=== PATIENT | male | born 1950 | race Caucasian/White ===

== ENCOUNTER → 2017-02-23 | Outpatient (CLI) | payer MEDICARE | END | disposition home or self-care (01) | LOC: GMAM 10:14 | PROVIDERS: ATTEND Family Medicine | DX: Z12.5 Encounter for screening for malignant neoplasm of prostate (principal) ==

== ENCOUNTER → 2018-03-22 | Outpatient (CLI) | payer MEDICARE | LOC: GMAM 12:07 | PROVIDERS: ATTEND Family Medicine | DX: Z12.5 Encounter for screening for malignant neoplasm of prostate (principal) ==

== ENCOUNTER 2019-06-07 10:57 | Inpatient (IN) | payer MEDICARE ==
--- NOTE | 2019-06-07 10:58 | HP ---
SUPERVISING PHYSICIAN: Wu Gray MD CHIEF COMPLAINT: Heart palpitations, shortness of breath. HISTORY OF PRESENT ILLNESS: Mr. Rodriguez is a 68-year-old, male patient that presented to Dr. Gray's office today for evaluation of shortness of breath and heart palpitations which he has been experiencing since this past weekend. In the clinic, it was noted that his heart rate was in the 130s and EKG revealed he was in atrial flutter. He does have a history of recently being treated for questionable pneumonia on both azithromycin 2 weeks previously and then a week's worth of Levaquin within the last week and just finished up 2 days ago on treatment course. He was denying any actual chest pains, but noted he had been having some palpitations and just overall not feeling well since Thursday. Given his EKG showing atrial flutter which is new onset with no history of atrial fibrillation, Dr. Gray requested the patient be direct admission for initiation and evaluation for further treatment of questionable chronic obstructive pulmonary disease exacerbation having failed outpatient treatment plan and new onset of atrial fibrillation/flutter. The patient was admitted in stable condition. PAST MEDICAL HISTORY: 1. Hypertension. 2. Diabetes mellitus, type 2. 3. Chronic obstructive pulmonary disease. 4. Chronic nicotine addiction. PAST SURGICAL HISTORY: 1. Colon resection in January of this past year for polypectomy. 2. Tonsillectomy. HOME MEDICATIONS: 1. Lisinopril 20 mg b.i.d. 2. Vitamin B12 1000 mcg sublingual daily. 3. Atorvastatin 40 mg daily. 4. Metformin 1000 mg b.i.d. 5. Gabapentin 300 mg b.i.d. 6. Aspirin 81 mg at bedtime. 7. Amlodipine 10 mg daily. ALLERGIES: NO KNOWN DRUG ALLERGIES. FAMILY HISTORY: Mother is still alive at age 91 with advanced dementia and lives in a care facility. His dad is at age 63 due to heart attack and strokes. He has no siblings. SOCIAL HISTORY: The patient is a retired construction carpenter. He currently lives in [place], [place]. He is . He notes that he does drink approximately 5 to 6 beers on a daily basis and smokes about a half a pack of cigarettes daily and has smoked anywhere from 1 pack to 1-1/2 packs a day for over 50 years. He denies any illicit drug use. REVIEW OF SYSTEMS: CONSTITUTIONAL: Positive for general malaise. Denies any fever or chills. HEENT: Negative for headache, sore throats, earaches, nasal congestion, vision changes. RESPIRATORY: Positive for cough, shortness of breath as noted in history of present illness. Recent treatment with Levaquin and Z-Damon for pneumonia. CARDIOVASCULAR: Negative for chest pain or syncopal episodes. Positive for palpitations as noted in history of present illness. GASTROINTESTINAL: Negative for nausea, vomiting, diarrhea or abdominal pain. GENITOURINARY: Negative for dysuria, hematuria, polyuria. MUSCULOSKELETAL: Denies any arthralgias, joint swelling. SKIN: Negative for lesions, rashes, moles or unexplained changes. NEUROLOGIC: Negative for syncopal episode, vision changes, headaches, ataxia, seizures or other neurological deficits. HEMATOLOGIC: Denies easy bruising or unexplained bleeding. PHYSICAL EXAMINATION: VITAL SIGNS: On admission, heart rate between 115 and 140, blood pressure 139/96, temperature 98.7, pulse 18, saturation 96% on room air at rest. Admission weight was 77.5 kg. GENERAL: The patient appeared to be in no acute distress, well-hydrated, well- nourished, alert. HEENT: Tympanic membranes clear bilaterally. Oropharynx is pink, moist without any lesions. NECK: Supple, nontender with full range of motion. No jugular venous distention noted. RESPIRATORY: Lung sounds fairly clear throughout, just very faint rhonchi noted on the right, more prominent on the posterolateral aspect, but diminished towards the bases bilaterally. No wheezing or rales noted. CARDIOVASCULAR: Regular rate and rhythm with III/ systolic murmur. No gallops or rubs noted. ABDOMEN: Soft, nontender. Positive bowel sounds. EXTREMITIES: There is no edema. NEUROLOGIC: The patient is alert and oriented times three. Cranial nerves II- XII are grossly intact. SKIN: Warm, pink and dry. LABORATORY: White count 10,600 with a left shift showing 2% bands. Hemoglobin 14.1, hematocrit 40.9, platelet count 478,000. Chemistry showed sodium 134, potassium 3.5, anion gap normal at 16 with carbon dioxide 25, BUN 13, creatinine 0.84. Blood sugar 200. Calcium 8.8, magnesium low at 1.6. Liver functions all within normal limits. Troponin 0.02. BNP elevated at 493. TSH pending. RADIOLOGY: Two-view chest per radiologic interpretation showed mild opacification of the right midlung which may represent areas of subsegmental atelectasis although pneumonia and aspiration are not excluded. Small bilateral pleural effusion, but no pneumothorax. There was note of borderline enlarged heart and partial calcified aorta. ASSESSMENT: 1. New onset of atrial flutter with EKG showing 3:1 to 4:1 conduction with RVR at 130-140bpm. 2. Acute exacerbation of congestive heart failure with a moderately reduced ejection fraction and a Grade I diastolic dysfunction with current echocardiogram showing ejection fraction of approximately 50% with aortic stenosis. 3. Exacerbation of chronic obstructive pulmonary disease having failed outpatient treatment plan with concerns for etiology being a gram negative probably Pseudomonas having been on Levaquin and azithromycin in the last 2 weeks. 4. Hypertension, poorly controlled. 5. Type 2 diabetes mellitus, on oral therapy. 6. Mild electrolyte imbalance to include hyponatremia, hypokalemia and hypomagnesemia, possibly exacerbating #1 with hyponatremia likely due to underlying pneumonia. PLAN: Mr. Rodriguez is going to be admitted for initiation of treatment for new onset of atrial flutter for rate control and anticoagulation. We will start him on a beta bo with metoprolol and hopefully be able to get better control. I will start him on Eliquis after talking with Dr. Gray. Given that he has been on Levaquin and azithromycin for underlying pneumonia, we will go ahead and start him on cefepime for concerns for Pseudomonas as well as doxycycline for atypical coverage given his underlying cardiac issues. We will go ahead and correct his electrolytes with both oral potassium and IV magnesium and follow those closely. He will be on cardiac telemetry. He already is on an MAGDALENA inhibitor and current echocardiogram results were pending. He is going to be started on a beta bo. We will hold off on Lasix at this point and reevaluate in the morning depending on how he clinically presents. He may need to go home on some Lasix and potassium, but we will await further assessment. We will go ahead and start him on Eliquis for anticoagulation. He will be on Protonix for gastric protection. I anticipate length of stay to be 2 to 3 days. Until the patient can transition to outpatient management, we will continue to monitor and treat as needed. #[id number] [facility]
[2019-06-07] MEDS ORDERED: SODIUM CHLORIDE 0.9% 1000ML 1,000 ML IVS PRN (11:05)
[2019-06-07] MEDS ORDERED: SODIUM CHLORIDE 0.9% (FLUSH) 10 ML SYG IV PRN (11:05)
[2019-06-07] MEDS ORDERED: ALUM & MAG HYDROX-SIMETHICONE 30 ML UD PO PRN (11:05)
[2019-06-07] MEDS ORDERED: GLUCAGON INJ 1 MG VIAL SUBCU PRN (11:05)
[2019-06-07] MEDS ORDERED: DEXTROSE 50% 25 GM/50 ML SYG IV PRN (11:05)
[2019-06-07] MEDS ORDERED: ONDANSETRON INJ 4 MG/2 ML VIAL IV PRN (11:05)
[2019-06-07] MEDS ORDERED: ACETAMINOPHEN 325 MG TAB PO PRN (11:05)
[2019-06-07] MEDS ORDERED: MAGNESIUM HYDROXIDE 30 ML UD PO PRN (11:05)
[2019-06-07] MEDS ORDERED: IV SET AND CAP CHANGE INJ INJ SCH (11:30)
[2019-06-07] MEDS ORDERED: MAGNESIUM SULFATE PREMIX 2GM 2 GM in PREMIX BAG 1 BAG IVPB ONE (12:19)
[2019-06-07] MEDS ORDERED: KCL 20 MEQ/NS 1,000 ML IVS PRN (12:24)
[2019-06-07] MEDS ORDERED: POTASSIUM CHLORIDE 20 MEQ TAB PO ONE (12:25)
[2019-06-07] MEDS ORDERED: MAGNESIUM SULFATE PREMIX 2GM 50 ML IVPB ONE (13:16)
[2019-06-07] MEDS: INSULIN LISPRO 100 UNITS/ML PEN SUBCU SCH ×3 (13:21→20:52)
[2019-06-07] MEDS ORDERED: METOPROLOL TARTRATE INJ 5 MG/5 ML VIAL IV ONE ×2 (13:39→17:21)
--- NOTE | 2019-06-07 14:02 | RAD ---
EXAM DESCRIPTION: Chest,2 Views CLINICAL HISTORY: 68 years Male, New onset Afib COMPARISON: None. TECHNIQUE: 2 view radiograph of the chest. IMPRESSION: Borderline enlarged heart. cardiac silhouette. Partially calcified aorta. Mild opacification in the right midlung which may represent areas of subsegmental atelectasis although pneumonia or aspiration are not excluded. Small bilateral pleural effusions. No pneumothorax. Thoracic spondylosis. Electronically signed by: Rodolfo Ny MD 06/07/2019 2:00 PM [facility]
[2019-06-07] MEDS ORDERED: SODIUM CHLORIDE 0.9% 250ML 250 ML ONE ×2 (15:24→20:18)
[2019-06-07] MEDS ORDERED: DOXYCYCLINE HYCLATE IV 100 MG VIAL IVPB ONE ×2 (15:24→20:19)
[2019-06-07] MEDS ORDERED: SODIUM CHL 0.9% 50ML MIN-BAG+ 50 ML IVPB ONE ×2 (15:24→20:18)
[2019-06-07] MEDS ORDERED: CEFEPIME 2 GM VIAL ONE ×2 (15:24→20:19)
[2019-06-07] MEDS: DOXYCYCLINE HYCLATE IV 100 MG in SODIUM CHLORIDE 0.9% 250ML 250 ML IVPB SCH (15:37)
[2019-06-07] MEDS: CEFEPIME 2 GM in SODIUM CHL 0.9% 50ML MIN-BAG+ 50 ML IVPB SCH (18:16)
[2019-06-07] MEDS ORDERED: ATORVASTATIN 20 MG TAB PO ONE (20:17)
[2019-06-07] MEDS ORDERED: LISINOPRIL 10 MG TAB ONE (20:17)
[2019-06-07] MEDS ORDERED: ASPIRIN (CHEWABLE) 81 MG TAB ONE (20:17)
[2019-06-07] MEDS ORDERED: metFORMIN HCL 500 MG TAB ONE (20:19)
[2019-06-07] MEDS: NON-FORMULARY MEDICATION 1 EA MIS (Lisinopril [Lisinopril] 20 MG) PO SCH (20:41)
[2019-06-07] MEDS: ASPIRIN (ENTERIC COATED) 81 MG TAB PO SCH (20:43)
[2019-06-07] MEDS: APIXABAN 5 MG TAB PO SCH (20:43)
[2019-06-07] MEDS: METOPROLOL TARTRATE 25 MG TAB PO SCH (20:44)
[2019-06-07] MEDS: GABAPENTIN 300 MG CAP PO SCH (20:44)
[2019-06-07] MEDS: NON-FORMULARY MEDICATION 1 EA MIS (Metformin Hcl [Glucophage] 1,000 MG) PO SCH (20:44)
[2019-06-07] MEDS ORDERED: NON-FORMULARY MEDICATION 1 EA MIS (Atorvastatin Calcium [Atorvastatin Calcium] 40 MG) PO SCH (21:00)
[2019-06-08] MEDS: DOXYCYCLINE HYCLATE IV 100 MG in SODIUM CHLORIDE 0.9% 250ML 250 ML IVPB SCH ×2 (01:52→13:33)
[2019-06-08] MEDS: CEFEPIME 2 GM in SODIUM CHL 0.9% 50ML MIN-BAG+ 50 ML IVPB SCH ×2 (03:58→15:55)
[2019-06-08] MEDS ORDERED: LISINOPRIL 10 MG TAB ONE (07:14)
[2019-06-08] MEDS ORDERED: metFORMIN HCL 500 MG TAB ONE (07:14)
[2019-06-08] MEDS ORDERED: SODIUM CHLORIDE 0.9% 250ML 250 ML ONE ×2 (07:14→18:58)
[2019-06-08] MEDS ORDERED: DOXYCYCLINE HYCLATE IV 100 MG VIAL IVPB ONE ×2 (07:15→18:59)
[2019-06-08] MEDS ORDERED: amLODIPine BESYLATE 5 MG TAB ONE (07:15)
[2019-06-08] MEDS: APIXABAN 5 MG TAB PO SCH ×2 (08:09→20:52)
[2019-06-08] MEDS: NON-FORMULARY MEDICATION 1 EA MIS (Metformin Hcl [Glucophage] 1,000 MG) PO SCH (08:09)
[2019-06-08] MEDS: METOPROLOL TARTRATE 25 MG TAB PO SCH ×2 (08:09→17:10)
[2019-06-08] MEDS: NON-FORMULARY MEDICATION 1 EA MIS (Lisinopril [Lisinopril] 20 MG) PO SCH (08:09)
[2019-06-08] MEDS: INSULIN LISPRO 100 UNITS/ML PEN SUBCU SCH ×4 (08:13→21:06)
[2019-06-08] MEDS: metFORMIN HCL 500 MG TAB PO SCH ×2 (08:42→20:53)
[2019-06-08] MEDS: LISINOPRIL 10 MG TAB PO SCH ×2 (08:42→20:53)
[2019-06-08] MEDS: amLODIPine BESYLATE 5 MG TAB PO SCH (08:42)
[2019-06-08] MEDS ORDERED: NON-FORMULARY MEDICATION 1 EA MIS (Amlodipine Besylate [Amlodipine Besylate] 10 MG) PO SCH (09:00)
[2019-06-08] MEDS ORDERED: POTASSIUM CHLORIDE 10 MEQ TAB PO SCH (11:26)
[2019-06-08] MEDS ORDERED: SODIUM CHLORIDE 0.9% (FLUSH) 10 ML SYG IV PRN (11:48)
[2019-06-08] MEDS ORDERED: POTASSIUM CHLORIDE 10 MEQ TAB PO ONE (11:55)
[2019-06-08] MEDS: FUROSEMIDE 40 MG TAB PO SCH (11:56)
--- NOTE | 2019-06-08 14:25 | PN ---
SUPERVISING PHYSICIAN: Wu Gray MD DATE: 06/08/19 SUBJECTIVE: The patient required a couple of doses of IV Lopressor yesterday for continued rapid ventricular response. He has had a little bit of episodes of shortness of breath, but never was in distress. He denied any chest pains. He does note that he does have some issues with laying flat in recent weeks. He has been afebrile. He has had no nausea or vomiting. OBJECTIVE: VITAL SIGNS: Temperature 97. Pulse 89. Blood pressure 150/94. Respirations 16. Saturation 94% on room air at rest. I&Os show a positive balance. Weight 77.5 kg. GENERAL: The patient is resting comfortably. He is alert. CHEST: Lung sounds are diminished towards to the bases bilaterally with just a very faint rhonchi heard on the posterolateral aspect in the right lung. HEART: Irregular rate today showing to be 80 on the monitor. ABDOMEN: Soft, nontender. Positive bowel sounds. EXTREMITIES: No edema today. NEUROLOGIC: Alert and oriented times three. LABORATORY: White count 6,600, hemoglobin 13.2, hematocrit 39.2, platelet count 404,000. Differential shows a resolved left shift with no bands present today. Chemistries show normal electrolytes with BUN 11, creatinine 0.84. Blood sugars have ranged from 154 to 216. Magnesium 1.8. RADIOLOGY: No additional radiographic studies today. 12-lead EKG is pending, but bedside monitor shows a sinus rhythm. ASSESSMENT: 1. New onset of atrial flutter with EKG with 4:1 conduction with rapid ventricular response up to 140 beats per minute, requiring IV Lopressor, initiation of metoprolol b.i.d. with the patient showing good rate control currently. 2. Acute exacerbation of congestive heart failure with a moderately reduced ejection fraction on echocardiogram showing ejection fraction 50% with aortic stenosis. 3. Exacerbation of chronic obstructive pulmonary disease secondary to community acquired pneumonia with concerns for a positive gram negative Pseudomonas with the patient having been previously on Levaquin and azithromycin and multiple risk factors within the last 2 weeks, requiring initiation of parenteral antibiotic. 4. Hypertension, poorly controlled, requiring initiation of Lasix and beta bo in addition to the amlodipine and lisinopril. 5. Type 2 diabetes mellitus, on oral therapy. 6. Electrolyte imbalance to include hyponatremia, hypokalemia and hypomagnesemia, possibly exacerbating #1, no normalized back to baseline levels with parenteral replacement. PLAN: We will continue with rate control with beta bo including metoprolol 25 mg b.i.d. He did get 2 doses of IV Lopressor last night. He still remains hypertensive. I discussed with Dr. Gray, his primary care physician, and we will add some Lasix, low dose, 20 mg with potassium given that he did have an elevated BNP and a reduced ejection fraction on the last echocardiogram. He remains on antibiotic coverage again for concerns for Pseudomonas currently with cefepime and doxycycline taking into account his past atrial fibrillation with rapid ventricular response episode. In regards to his congestive heart failure, he is on MAGDALENA inhibitor, beta bo currently and echocardiogram was done yesterday and he is started on Lasix today. He will need some education regards to his anticoagulation and underlying treatment and monitoring of congestive heart failure. He will need followup once he is discharged with Dr. Polanco, his virtual office assistant, as well as his primary care physician, Dr. Gray. I anticipate he will discharge tomorrow. He will need to go home on metoprolol 25 mg b.i.d. as well as Lasix 20 mg along with appropriate potassium supplementation. He is on Eliquis, but apparently his insurance is refusing to pay for this, so he notes he does have quite a bit of Xarelto at home from a family member that is no longer using it. I told him we would discuss with Dr. Gray as far as what he should go home on, Eliquis natalee Xarelto, until he could be followed up and seen by virtual office assistant. Until then, we will continue to monitor and treat as needed. #[id number] [facility]
[2019-06-08] MEDS ORDERED: CEFEPIME 2 GM VIAL ONE ×2 (15:42→18:59)
[2019-06-08] MEDS ORDERED: SODIUM CHL 0.9% 50ML MIN-BAG+ 50 ML IVPB ONE ×2 (15:42→18:58)
[2019-06-08] MEDS ORDERED: ATORVASTATIN 20 MG TAB PO ONE (18:58)
[2019-06-08] MEDS: ASPIRIN (ENTERIC COATED) 81 MG TAB PO SCH (20:52)
[2019-06-08] MEDS: GABAPENTIN 300 MG CAP PO SCH (20:53)
[2019-06-08] MEDS ORDERED: ATORVASTATIN 20 MG TAB PO SCH (21:00)
[2019-06-09] MEDS: DOXYCYCLINE HYCLATE IV 100 MG in SODIUM CHLORIDE 0.9% 250ML 250 ML IVPB SCH (02:24)
[2019-06-09] MEDS: CEFEPIME 2 GM in SODIUM CHL 0.9% 50ML MIN-BAG+ 50 ML IVPB SCH (04:29)
--- NOTE | 2019-06-09 07:07 | RAD ---
EXAM: XR Chest, 2 Views CLINICAL HISTORY: Rt sided PNA TECHNIQUE: Frontal and lateral views of the chest. COMPARISON: 06/07/2019. FINDINGS: Limitations: None. Lungs: Stable hyperinflation and interstitial scarring. Stable mild linear atelectasis or scar left lung base. Pleural space: Stable mild basilar pleural thickening/effusion. No pneumothorax. Heart: Unremarkable. No cardiomegaly. Mediastinum: Unremarkable. Bones/joints: Unremarkable. IMPRESSION: Stable abnormalities as above. Electronically signed by: Karen Cedeno MD 06/09/2019 7:06 AM [facility]
[2019-06-09] MEDS ORDERED: POTASSIUM CHLORIDE 10 MEQ TAB PO SCH (07:30)
[2019-06-09] MEDS: INSULIN LISPRO 100 UNITS/ML PEN SUBCU SCH (07:36)
[2019-06-09] MEDS: METOPROLOL TARTRATE 25 MG TAB PO SCH (08:17)
[2019-06-09] MEDS: APIXABAN 5 MG TAB PO SCH (08:17)
[2019-06-09] MEDS: FUROSEMIDE 40 MG TAB PO SCH (08:18)
[2019-06-09] MEDS: metFORMIN HCL 500 MG TAB PO SCH (08:19)
[2019-06-09] MEDS: LISINOPRIL 10 MG TAB PO SCH (08:19)
[2019-06-09] MEDS: amLODIPine BESYLATE 5 MG TAB PO SCH (08:20)
[2019-06-09 09:37] VITALS: BP 138/89; TEMP 98.1; O2SAT 95
--- NOTE | 2019-06-10 09:31 | DS ---
SUPERVISING PHYSICIAN: Wu Gray MD DISCHARGE DIAGNOSIS: 1. New onset of atrial flutter with EKG with 4:1 conduction with rapid ventricular response up to 140 beats per minute, requiring IV Lopressor, initiation of metoprolol b.i.d. with the patient showing good rate control currently. 2. Acute exacerbation of congestive heart failure with a moderately reduced ejection fraction on echocardiogram showing ejection fraction 50% with aortic stenosis. 3. Exacerbation of chronic obstructive pulmonary disease secondary to community acquired pneumonia with concerns for a positive gram negative Pseudomonas with the patient having been previously on Levaquin and azithromycin and multiple risk factors within the last 2 weeks, requiring initiation of parenteral antibiotic. 4. Hypertension, poorly controlled, requiring initiation of Lasix and beta bo in addition to the amlodipine and lisinopril. 5. Type 2 diabetes mellitus, on oral therapy. 6. Electrolyte imbalance to include hyponatremia, hypokalemia and hypomagnesemia, possibly exacerbating #1, no normalized back to baseline levels with parenteral replacement. HISTORY OF PRESENT ILLNESS: This a 68-year-old male patient who was being seen by Dr. Gray's, his primary care physician, for evaluation of shortness of breath and heart palpitations. He had been experiencing those since the previous weekend. In the clinic, his heart rate was in the 130s and EKG revealed he was in atrial flutter. He does have a history of being treated for questionable pneumonia and had been on Zithromax and then a week's worth of Levaquin. He had just finished his treatment course. There were no complaints of any chest pain, but he did feel palpitations in his chest and just overall did not feel well. Dr. Gray called and requested that the patient be directly admitted for initiation and evaluation of further treatment as well as chronic obstructive pulmonary disease exacerbation having failed outpatient treatment and new onset of atrial fibrillation/flutter. The patient was admitted in stable condition. HOSPITAL COURSE: The patient was started on anticoagulation. He had been started on Eliquis earlier, but had not started it due to the cost. He was also started on cefepime and doxycycline IV antibiotics and his electrolytes were replaced and followed closely. He was placed on cardiac telemetry and a beta bo was added. He is currently on an MAGDALENA inhibitor. An echocardiogram was done. He was also placed on Protonix for ulcer prophylaxis. His rhythm changed to normal sinus rhythm. Lasix and potassium were also added. He feels much better today and will be discharged home today in stable condition with close followup with his primary care physician. LABORATORY: CBC was basically unremarkable. Blood sugars run between 154 and 277. Electrolytes are within normal limits. His final magnesium was 1.8 with potassium 4.1. TSH 1.78. Urinalysis was unremarkable. His chest x-ray showed stable abnormalities with hyperinflation of the lungs and interstitial scarring with stable mild linear atelectasis or scar at the left lung base. His echocardiogram is not available at this time. DISCHARGE PLAN: The patient will be discharged home in stable condition. He is to resume all of his previous medications. I have discontinued his Eliquis as he has some samples of Xarelto at home and he will take Xarelto until he can be evaluated by Dr. Gray and Dr. Polanco. He is to resume his previous diet as well as increase his activity as tolerated. In addition to his routine home medications, I have also added metoprolol tartrate 25 mg p.o. b.i.d., Xarelto 20 mg daily, doxycycline 100 mg p.o. b.i.d. for 7 days, cefdinir 300 mg p.o. b.i.d. for 7 days as well as Lasix 20 mg daily and potassium. At his followup appointment with Dr. Gray, he will need a CMP and chest x-ray to check his electrolytes. He is to return to the hospital or followup with Dr. Gray for any problems or complications. DISCHARGE MEDICATIONS: 1. Gabapentin. 2. Aspirin. 3. Amlodipine. 4. Metformin. 5. Lisinopril. 6. Cyanocobalamin. 7. Atorvastatin. 8. Metoprolol tartrate. 9. Xarelto. 10. Cefdinir. 11. Doxycycline. 12. Furosemide. 13. Potassium chloride. #[id number] [facility]
== END 2019-06-09 11:15 | disposition home or self-care (01) | DRG 308 ==
LOC: INTOOBSV 10:57 → MS 10:57 → OBSVTOIN 10:57
PROVIDERS: ADMIT Nurse Practitioner Family; ATTEND Nurse Practitioner Acute Care
DX: I48.92 Unspecified atrial flutter (principal); J18.9 Pneumonia, unspecified organism; J44.1 Chronic obstructive pulmonary disease with (acute) exacerbation; J44.0 Chronic obstructive pulmonary disease with (acute) lower respiratory infection; E87.1 Hypo-osmolality and hyponatremia; I50.9 Heart failure, unspecified; I11.0 Hypertensive heart disease with heart failure; I35.0 Nonrheumatic aortic (valve) stenosis; E11.9 Type 2 diabetes mellitus without complications; E87.6 Hypokalemia; E83.42 Hypomagnesemia; F17.210 Nicotine dependence, cigarettes, uncomplicated; Z90.49 Acquired absence of other specified parts of digestive tract; Z79.82 Long term (current) use of aspirin; Z79.84 Long term (current) use of oral hypoglycemic drugs; Z79.899 Other long term (current) drug therapy